=== PATIENT | male | born 1980 | race African-American/Black ===

== ENCOUNTER 2016-11-17 05:05 | Day surgery (SDC) | payer MEDICAID ==
[2016-11-17] MEDS ORDERED: CYCLOBENZAPRINE10 MG PO (05:54)
[2016-11-17] MEDS ORDERED: NORCO 7.5/325 T1 TA1 PO ×2 (05:54→08:39)
[2016-11-17 06:35] LABS: BASOPHILS 0.3 % (0-2); HEMATOCRIT 45.7 % (42.0-54.0); HEMOGLOBIN 15.1 g/dL (13.5-17.5); IMMATURE GRANULOCYTES 0.3 % (0-5); LYMPHOCYTES 30.4 % (15-50); MCH 31.5 pg (26.0-34.0); MCV 95.4 fL (80.0-100.0); MEAN PLATELET VOLUME 11.1 fL (7.4-10.4); MONOCYTES 10.7 % (2-11); NEUTROPHILS 57.3 % (40-80); PLATELET COUNT 227 10x3/uL (130-400); RBC 4.79 10x6/uL (4.20-6.10); RDW 13.1 % (11.5-14.5); WBC 10.3 10x3/uL (4.8-10.8)
[2016-11-17 06:48] LABS: CALCIUM 7.8 mg/dL (8.5-10.1); CARBON DIOXIDE 25.7 mmol/L (21.0-32.0); CREATININE - SERUM 1.3 mg/dL (0.6-1.3); POTASSIUM - SERUM 3.7 mmol/L (3.5-5.1)
== END 2016-11-17 10:35 | disposition home or self-care (01) ==
LOC: D.OPS 05:05
PROVIDERS: Surgery
DX: K42.9 Umbilical hernia without obstruction or gangrene (principal); Z01.812 Encounter for preprocedural laboratory examination

== ENCOUNTER 2017-07-01 21:18 | Emergency (ER) | payer MEDICAID ==
[2016-11-17 05:58] VITALS: BMI 31.9
[~2017-07-01 21:18] MED LIST: CYCLOBENZAPRINE10 MG PO; NORCO 7.5/325 T1 TA1 PO
== END 2017-07-01 22:50 | disposition home or self-care (01) ==
LOC: D.ER 21:18
DX: S41.112A Laceration without foreign body of left upper arm, initial encounter (principal); W19.XXXA Unspecified fall, initial encounter; Y93.89 Activity, other specified; Y92.010 Kitchen of single-family (private) house as the place of occurrence of the external cause

== ENCOUNTER 2017-07-02 12:45 | Emergency (ER) | payer MEDICAID ==
[2016-11-17 05:58] VITALS: BMI 31.9
== END 2017-07-02 13:07 | disposition home or self-care (01) ==
LOC: D.ER 12:45
DX: S41.112D Laceration without foreign body of left upper arm, subsequent encounter (principal); X58.XXXD Exposure to other specified factors, subsequent encounter; Y92.89 Other specified places as the place of occurrence of the external cause; F17.200 Nicotine dependence, unspecified, uncomplicated

== ENCOUNTER 2019-10-07 19:59 | Emergency (ER) | payer SELFPAY ==
[~2019-10-07] VITALS: Ht 182.9 cm; Wt 109.1 kg
[2019-10-07 20:11] VITALS: Ht 182.9 cm; Wt 109.1 kg
[2019-10-07] MEDS ORDERED: XOFLUZA40 MG PO (21:46)
[2019-10-07] MEDS ORDERED: ZOFRAN ODT4 MG/UDTAB PO (21:47)
[2019-10-07 22:00] VITALS: BP 101/55
== END 2019-10-07 22:00 | disposition home or self-care (01) ==
LOC: D.ER 19:59
DX: B34.9 Viral infection, unspecified (principal); R11.2 Nausea with vomiting, unspecified; R50.9 Fever, unspecified